=== PATIENT | male | born 1955 | race Caucasian/White ===

== ENCOUNTER 2025-04-18 06:38 | Day surgery (SDC) | payer OTHER, SELFPAY ==
--- NOTE | 2025-04-18 09:05 | ITS.CL.CARDI ---
Steam And Power Superintendent - Cardioversion
Cardioversion
Procedure Report:
Procedure: NEFTALI-guided electrical cardioversion
Pre-operative diagnosis: Persistent atrial fibrillation
Post-operative diagnosis: Persistent atrial fibrillation status post DC cardioversion to sinus rhythm
Anesthesia: MAC
Attending Physician: Abdoul Gonsalez MD
Procedure Description: The patient was brought to the electrophysiology laboratory in the fasting state. Informed consent was obtained from the patient prior to the start of the procedure. Adherence to anticoagulation was confirmed. Electrodes were
placed on the patient and connected to an external defibrillator. Monitoring of blood pressure, ECG tracings, and pulse oximetry was initiated. The pads were applied to the patient in the anterior and posterior positions. The patient was sedated by
the anesthesiologist. A NEFTALI (reported separately) was performed prior to the cardioversion. No left atrial or left atrial appendage thrombus was seen. After the NEFTALI probe was removed, a 200 joule biphasic synchronized shock was delivered to the
patient under MAC anesthesia. Sinus rhythm was successfully restored. After several minutes atrial fibrillation recurred. Subsequent 200 joule biphasic synchronized shock was delivered to the patient under MAC anesthesia. Sinus rhythm was again
successfully restored. The patient recovered uneventfully from MAC anesthesia. There were no immediate post-procedure complications. The patient left the lab in good condition. The attending physician was present throughout the entire procedure.
Impression: Successful NEFTALI-guided direct current cardioversion with restorationist of sinus rhythm after two 200 joule biphasic synchronized shock.
== END 2025-04-18 09:40 | disposition home or self-care (01) ==
LOC: CATH 06:38
PROVIDERS: ATTENDING PHYSICIAN Internal Medicine Cardiovascular Disease; FAMILY PHYSICIAN Family Medicine; OTHER PHYSICIAN Internal Medicine Cardiovascular Disease
DX: I48.19 Other persistent atrial fibrillation (principal); I08.1 Rheumatic disorders of both mitral and tricuspid valves; I48.92 Unspecified atrial flutter; Z79.01 Long term (current) use of anticoagulants
CPT/HCPCS: 93312; 93320; 93325; 92960; 93005

== ENCOUNTER 2025-07-04 06:03 | Day surgery (SDC) | payer OTHER, SELFPAY ==
[2025-06-07 08:11] VITALS: BMI 31.3
[2025-06-07 08:40] LABS: Hematocrit 45.0 % (39.0-52.0); Hemoglobin 15.5 g/dL (13.0-18.0); Mean Corp Hgb Conc. 34.4 g/dL (33.0-37.0); Mean Corpuscular Volume 94.1 fL (80.0-94.0); Nucleated Red Blood Cells % 0 % (-); Platelet Count 190 10^3/uL (130-400); Red Cell Dist. Width 13.2 % (11.5-14.5)
[2025-06-07 08:51] LABS: INR 1.19; PT 15.4 Sec (11.4-14.6)
[2025-06-07 08:59] LABS: ALT (SGPT) 34 U/L (0-50); AST (SGOT) 33 U/L (17-59); Albumin 4.4 g/dl (3.5-5.0); Alkaline Phosphatase 73 U/L (38-126); Blood Urea Nitrogen 27 mg/dl (9-20); Calcium 9.2 mg/dl (8.4-10.2); Carbon Dioxide 20 mmol/L (22-30); Estimated Creatinine Clearance 98 ml/min; Glucose 94 mg/dl (70-99); Magnesium 1.9 mg/dl (1.6-2.3); Potassium 4.8 mmol/L (3.5-5.1); Sodium 141 mmol/L (135-145); Total Protein 7.1 g/dl (6.3-8.2); eGFR > 60.00
[2025-06-07 09:06] LABS: Chloride 107 mmol/L (98-107)
[2025-07-04] VITALS (10 sets, daily range): BP systolic 85–125; BP diastolic 68–88; BMI 31.3
[2025-07-04 08:55] LABS: ACT-LR - POC 318 Seconds (116-155)
[2025-07-04 09:26] LABS: ACT-LR - POC 353 Seconds (116-155)
--- NOTE | 2025-07-04 10:03 | ITS.CL.ABL ---
Content Editor - Ablation
Ablation
Procedure Report:
ELECTROPHYSIOLOGY ABLATION STUDY
DATE:: 07/04/2025�����������������������������REFERRING: Dr. Toby Timmons
INDICATION: Persistent supraventricular tachycardia in the form of atrial fibrillation.��Prior history of pulmonary vein isolation x 2
HISTORY: See H and P.��As above
ANTIARRHYTHMIC DRUG: Dofetilide
PRE-PROCEDURE NEFTALI: No intracardiac thrombus on left atrial appendage
PRESENTING RHYTHM: A-fib
'TIME-OUT':��called and confirmed.
SEDATION/ANESTHESIA:��provided via the anesthesia department using general anesthesia (LMA).
INTRAVENOUS/ARTERIAL ACCESS:
Right femoral venous - 8Fr
Left femoral venous - 8 Fr, 6 Fr
Ultrasound guidance for bilateral femoral vein access was utilized by me to obtain access with demonstration of normal anatomy
CHADS-VASC Score:
HAS-Bled Score
PROCEDURE:
1.��A decapolar CS catheter was placed within the CS for mapping and pacing.��This was also used as the reference catheter for the 3-D map.
2. The intracardiac ultrasound catheter was positioned in the RA to identify the FO for targeting of transseptal puncture, assist��in identification of the pulmonary vein ostia, monitoring pre and post ablation pulmonary vein flow velocities,
monitoring for 'bubble' formation during RF application as a sign of thermal injury,��and to monitor for pericardial effusion during mapping and ablation procedure.���Left atrial size, LV ejection fraction, and pulmonary vein flows were monitored
pre and post ablation procedure. The other valves were inspected and found to be free of significant regurgitation or stenosis.
3.��Half of the calculated heparin bolus was administered prior to the first transeptal puncture.��Transseptal puncture was performed to diagnose RA and LA pressure so that safety of LA mapping and ablation could be further assessed, and to access
the left atrium and pulmonary veins for mapping and ablation.��This entailed advancing an 10 Hungarian steerable sheath with dilator into the superior vena cava and withdrawing both (monitoring intracardiac ultrasound, fluoroscopy and tip pressure)
with the tip oriented toward the atrial septum.��The fossa ovalis was engaged (indicated by sudden displacement of the sheath tip as well as tenting of the fossa seen on intracardiac ultrasound).��Left atrial access required a pass with the
Brockenbrough needle extended.��Left atrial catheter position was confirmed by pressure monitoring (RA mean pressure 4 mm Hg and LA mean presure 7 mm Hg), LA saturation (99%),��as well as fluoroscopy.��The sheath was advanced over the dilator and
positioned in the left atrium.��This procedure was repeated for the Agilis sheath.��The remainder of the calculated heparin bolus was administered and heparin was
infused to maintain ACT at 300 -350 seconds throughout the case.
4.��RA pacing was performed via the proximal decapolar poles and LA pacing was performed via the distal decapolar poles.
5. A quadrapolar catheter was first positioned at the His position for His Bundle recording which was tagged via the 3-D Navex sytem, and then passed to the RVA for RV pacing and recording.
6. The pulmonary veins were isolated at baseline except for the appendage side of the ligament of Edvin which was addressed with focal PFA. LIPV, LSPV, RSPV and the RIPV.��
7.��Next, a 3-D map was created using Navex.���A 3-D reconstructed CT image was compared to the 3-D Navex map to assist in anatomic interpretation, mapping and ablation.��The CT image and the NavX image were fused.
8. 9 mm lattice catheter utilized focal PFA lesions along the ligament of Edvin from the root to the floor. Posterior box lesion set was given to the posterior wall with the roof and floor lines as well as a posterior box and substrate ablation
the posterior wall. Despite the pulmonary vein lesions on the ligament of Edvin and the posterior box lesion set atrial fibrillation persisted and the patient was cardioverted to sinus rhythm. We then confirmed entrance and exit block in all 4
pulmonary veins as well as entrance and exit block from the posterior wall with electrical silence from the roof to the floor of the LA. Additional substrate at the base of the left atrial appendage and the left atrial floor was performed with PFA.
EPS post cardioversion demonstrated inducibility of a macro gentian rhythm cycle length 310 ms which was entrained and out of the circuit from the left atrium. From that lateral CTI we were able to terminate the arrhythmia with a nonconducted
stimulus suggesting CTI flutter. We then with RA pacing mapped the CTI line from prior ablation and there was some breakthrough at the IVC junction with the RA. We delivered PFA lesions at the IVC RA junction rendering bidirectional block 150 ms
bidirectionally. We then performed additional RA substrate based ablation from the mid to lower sherly terminalis.
9 normal sinus node and AV node function..
TOTAL FLOURO TIME: 12.1 minutes
TOTAL RF DURATION: 0 minutes
REVERSAL OF HEPARIN: 40 mg of protamine, slow IV administration
COMPLICATIONS:
None
Intracardiac US shows no pericardial effusion post ablation.
SUMMARY:��
Complex left atrial mapping and ablation.
Reisolation of left superior pulmonary vein from the leg into Edvin left atrial appendage side. Left atrial posterior wall isolation with a box lesion set. Repeat CTI flutter ablation with focal lesions at the IVC RA junction. Additional
sherly terminalis substrate modification with PFA.
RECOMMENDATIONS:
1. Ambulate in 4 hours
2. Resume anticoagulation
3.� Resume dofetilide
4.��Consider same-day discharge
Copy to: Dr. Bennett Timmons
--- NOTE | 2025-07-04 11:11 | PTCARENOTE ---
2 episodes of tachycardia noted on monitor, self limiting, see strips, ?PAT, asymptomatic for pt, Chandrika HOLLIDAY made aware, no new orders
--- NOTE | 2025-07-04 14:00 | W.PN.UPDATE ---
Update Note
Progress Note Update
69 yo WM s/p PVI (Same day). He denies cp, sob, qi diet, voiding, EKG SR, groin stable. He will resume Eliquis tonight, continue dofetilide and metoprolol. Activity restrictions reviewed. He is for d/c home after 230p
== END 2025-07-04 14:30 | disposition home or self-care (01) ==
LOC: CATH 06:03
PROVIDERS: ATTENDING PHYSICIAN Internal Medicine Cardiovascular Disease; FAMILY PHYSICIAN Family Medicine
DX: I48.0 Paroxysmal atrial fibrillation (principal); I42.8 Other cardiomyopathies; E78.5 Hyperlipidemia, unspecified; I11.0 Hypertensive heart disease with heart failure; I48.92 Unspecified atrial flutter; G47.33 Obstructive sleep apnea (adult) (pediatric); Z87.891 Personal history of nicotine dependence; Z79.899 Other long term (current) drug therapy; Z79.01 Long term (current) use of anticoagulants; I47.10 Supraventricular tachycardia, unspecified; Z96.653 Presence of artificial knee joint, bilateral
CPT/HCPCS: C1733; C1894; C1730; C1892; C1766; C1759; 36415; 80053; 83735; 85025; 85347; 85610; 86850; 86900; 86901; 93005; 93655; 93656; 93657

== ENCOUNTER 2025-07-11 12:02 | Inpatient (IN) | payer OTHER, SELFPAY ==
--- NOTE | 2025-07-11 10:35 | W.PN.CARDCBS ---
Today's Communication / Plan
-
Plan for CV today and will start Tikosyn 250mcg po q12
Lasix 20mg daily and check pro-BNP
Impression / Plan
-
Assessment:
symptomatic paroxysmal Afib
s/p PVI 07/04/25
Hx PVI/CTI 08/03
GENTRY
GERD
BPH
esophageal stricture
HTN
Lipids
NEFTALI 04/18/25: EF 50%, mild-mod MR, mild-mod TR
PLan:
He presents for elective cardioversion after recent PVI 1 week ago. He admits to being noncompliant with his Tikosyn for the past month or so. After cardioversion we will proceed with mini load of Tikosyn with 250 mcg every 12. We will follow his
QT interval. Previous QT intervals have been in the 490 to 500 ms range. Continue Eliquis 5 mg p.o. twice daily. Continue metoprolol.
CHeck Labs/pro-BNP.
Cont Lasix
Progress Note - Sandwich Board Carrier
Subjective
Date of Service: July 11, 2025
presents with palpitations/fatigue and back in afib.
Physical Exam
Physical Exam
97.6 80 125/60 18
GEN: No distress, awake, Ox3
HEENT: supple, anicteric, mmm
LUNGS: CTA, no wheezes/rales
CV: irreg, S1/S2, 1/6 syst LSB, no gallop
ABD: soft, BS+, NT/ND
EXT: No edema
NEURO: Gross non-focal
SKIN: No rash
--- NOTE | 2025-07-11 11:54 | W.CARD.TIKOS ---
Initiate Tikosyn
-
I verify that the patient has not taken any verapamil (Isoptin/Calan), ketoconazole (Nizoral), cimetidine (Tagamet), trimethoprim (Trimpex), trimethoprim/sulfamethoxazole (Bactrim), megesterol (Megace), prochlorperazine (Compazine),
hydrochlorothiazide (HCTZ), dolutegravir (Tivicay) or any Class I or Class III anti-arrhythmic within the last three days
AND
I verify that the patient has not taken amiodarone within the last THREE months, or that the patient's amiodarone plasma concentration is <0.3 mcg/mL.
Does patient have a Ventricular Conduction Abnormality: No
I have assessed the baseline QTc interval (using QT for heart rate less than 60 bpm) and deemed the patient is appropriate for Dofetilide therapy. I understand that Tikosyn is contraindicated if the QTc is >440msec (500msec in patients with
ventricular conduction abnormalities).
Baseline QTc (in msec): 495
QTc interval is greater than 440msec without conduction abnormality OR greater than 500msec with a conduction abnormality, but acceptable to proceed per Cardiology attending.
Ordering Physician: Jose Chicas
--- NOTE | 2025-07-11 12:09 | ITS.CL.CARDI ---
Evening Or Night Nurse Supervisor - Cardioversion
Cardioversion
Procedure Report:
Date of Procedure: 07/11/25
Procedure: Cardioversion
Indication: Symptomatic atrial fibrillation
Performing Physician: Talha Chicas MD
Technique: The patient was brought to the holding area. Signed informed consent was obtained. A time out was called and performed. The patient was anesthetized by the anesthesia service. Anticoagulation status was reviewed and appropriate. R2 pads
were placed anteriorly and posteriorly. A 200 J synchronized biphasic shock restored normal sinus rhythm without significant bradycardia. There were no complications.
Conclusion: Uncomplicated cardioversion from atrial fibrillation to sinus rhythm.
Recommendation: Routine post cardioversion care. Continue purchase order checker anticoagulation. Admit for Tikosyn re-load.
--- NOTE | 2025-07-11 12:12 | W.PN.UPDATE ---
Update Note
Progress Note Update
went back in afib 5 minutes after CV. Will start Tikosyn 250mcg q12 and then reattempt CV in AM.
Follow QTc
--- NOTE | 2025-07-11 13:35 | PTCARENOTE ---
Addendum entered by Madeleine Salinas RN 07/11/25 13:42:
At 1310 hours, rec'd pt report.
Original Note:
rec'd pt report from SHANNAN Villatoro. She advises unable to collect ordered labs. Phlebotomy aware and will come to BS.
[2025-07-11 14:01] VITALS: BP 129/98
[2025-07-11 14:21] LABS: ALT (SGPT) 28 U/L (0-50); AST (SGOT) 24 U/L (17-59); Albumin 4.3 g/dl (3.5-5.0); Alkaline Phosphatase 66 U/L (38-126); Blood Urea Nitrogen 21 mg/dl (9-20); Calcium 9.3 mg/dl (8.4-10.2); Carbon Dioxide 29 mmol/L (22-30); Chloride 108 mmol/L (98-107); Glucose 96 mg/dl (70-99); Magnesium 1.8 mg/dl (1.6-2.3); Potassium 5.4 mmol/L (3.5-5.1); Sodium 140 mmol/L (135-145); Total Protein 6.8 g/dl (6.3-8.2); eGFR > 60.00
[2025-07-11 14:29] VITALS: BMI 31.7
[2025-07-11 14:34] LABS: Hematocrit 45.0 % (39.0-52.0); Hemoglobin 15.6 g/dL (13.0-18.0); Mean Corp Hgb Conc. 34.7 g/dL (33.0-37.0); Mean Corpuscular Volume 94.3 fL (80.0-94.0); Nucleated Red Blood Cells % 0 % (-); Platelet Count 187 10^3/uL (130-400); Red Cell Dist. Width 13.2 % (11.5-14.5)
[2025-07-11] MEDS: TIKOSYN 250 MCG PO (15:11)
[2025-07-11 16:09] VITALS: BP 124/90
--- NOTE | 2025-07-11 16:32 | CM ---
Addendum entered by Jahaira Killian 07/11/25 16:55:
Telephone call to [facility] to check if they have Dofetilide 250 in stock. They only have six pills. They will need a script to order it.
Addendum entered by Jahaira Killian 07/11/25 16:45:
Telephone call to [facility] , ([phone]) to check on coverage for Dofetilide 250 mcg po bid. His co-pay for a 30 day supply is $3.00 and for a 90 day supply is $10.00. His will need a three day script sent to [facility] so a three
supply can go home with him.
Original Note:
Reviewed chart. Met with to review discharge plans. He states prior to admission he resides with his spouse in a two story home with five steps to enter. He states he stay on the first floor. He states prior to admission he was
independent with ambulation and adls. He states he does not have any DME in the home. He states he has a prescription plan and uses [facility]. Medical work up in progress. The discharge plan is to return home with his spouse when
medically stable.
--- NOTE | 2025-07-11 19:00 | PTCARENOTE ---
~1355: Received report from CCL. Patient brought to room via bed. Pt AOx4, Afib 80s-110s on tele, SBP 120s, RA satting 95%. Pt denies pain at this time. Independent in room,. Admission questions completed and patient oriented to room and callbell
system. Patient walking frequently in halls independently. All needs met at this time, call martinez within reach.
~1500: First Tikosyn dose given per order. informed Elma Hidalgo PA-C thst K resulted 5.4, no new orders at this time.
~1640: Patient red alarmed with what could be conversion pauses. The first one was 2 seconds and the second was 3 seconds long. HR on monitor drops to 50s quickly and then back up to 80s-90s and remains in Afib, Elma Hidalgo PA-C made aware.
~2459-1336: EKG obtained per protocol for QTC monitoring.
~[id number]: patient walking halls. VSS at this time. family visiting. All needs met at this time. handoff report given to nightshift RN.
[2025-07-11 20:22] VITALS: BP 109/89
[2025-07-11] MEDS: LOPRESSOR 25 MG PO (20:24)
[2025-07-11] MEDS: ELIQUIS 5 MG PO (20:25)
--- NOTE | 2025-07-11 20:48 | PTCARENOTE ---
Assumed care at 1900. Patient alert and oriented x4. Denies any chest pain or shortness of breath. Patient ambulating independently in halls and room. Patient remains Afib on tele. Heart rates elevated with ambulation. Plan of care reviewed with
patient. Patient aware he is to be NPO at midnight for cardioversion tomorrow. Call martinez within reach.
[2025-07-11 22:19] VITALS: BP 116/91
[2025-07-12 04:02] VITALS: BP 118/84
[2025-07-12] MEDS: TIKOSYN 250 MCG PO ×2 (04:04→16:09)
[2025-07-12 04:52] LABS: Hematocrit 45.7 % (39.0-52.0); Hemoglobin 15.8 g/dL (13.0-18.0); Mean Corp Hgb Conc. 34.6 g/dL (33.0-37.0); Mean Corpuscular Volume 93.3 fL (80.0-94.0); Platelet Count 180 10^3/uL (130-400); Red Cell Dist. Width 13.3 % (11.5-14.5)
[2025-07-12 05:30] LABS: Blood Urea Nitrogen 20 mg/dl (9-20); Calcium 9.4 mg/dl (8.4-10.2); Carbon Dioxide 26 mmol/L (22-30); Chloride 108 mmol/L (98-107); Estimated Creatinine Clearance > 125 ml/min; Glucose 88 mg/dl (70-99); Potassium 4.7 mmol/L (3.5-5.1); Sodium 141 mmol/L (135-145); eGFR > 60.00
[2025-07-12 06:00] VITALS: BMI 30.7
--- NOTE | 2025-07-12 06:40 | PTCARENOTE ---
Patient sleeping between care overnight. Dose 2 of Tikosyn given at 0400. 2 hour post dose QTc = 494. Patient remains in afib on tele. Patient has been NPO since midnight for cardioversion this AM.
[2025-07-12] MEDS: ELIQUIS 5 MG PO (06:41)
[2025-07-12 06:59] VITALS: BP 155/143
[2025-07-12 07:02] VITALS: BP 116/74
--- NOTE | 2025-07-12 07:36 | PTCARENOTE ---
pt off unit for cv.
--- NOTE | 2025-07-12 08:57 | W.PN.CARDCBS ---
Addendum entered and electronically signed by Elma Hidalgo PA-C 07/12/25 15:36:
[id number]
Addendum entered and electronically signed by Jose Chicas MD 07/12/25 09:25:
I saw and examined the patient.
The Clerical Car Checker's note was reviewed and I agree with the note.
Comment:
GEN: No distress, awake, Ox3
HEENT: supple, anicteric, mmm
LUNGS: CTA, no wheezes/rales
CV: Reg, S1/S2, 1/6 syst LSB, no gallop
ABD: soft, BS+, NT/ND
EXT: No edema
NEURO: Gross non-focal
SKIN: No rash
Plan:
Overall doing well and back in sinus rhythm today after cardioversion.
Continue Tikosyn 250 mcg every 12. Follow QT interval.
Continue Eliquis and metoprolol.
Likely for discharge later today after third dose of Tikosyn if QT stable.
Addendum entered and electronically signed by Elma Hidalgo PA-C 07/12/25 09:19:
Prior to ablation he had been on 20 mg of Lasix 3-5 times a week, however it appears this was stopped post ablation. Will have patient follow daily weights as outpatient and could consider resuming low-dose Lasix several times a week as outpatient
if felt to be needed
Original Note:
Today's Communication / Plan
-
Continue Tikosyn 250 mcg every 12 hours
Follow QTc
Continue Eliquis, Lopressor
Plan for discharge later today if remains stable after third dose
Impression / Plan
-
Assessment:
symptomatic paroxysmal Afib
s/p PVI 07/04/25
Hx PVI/CTI 08/03
s/p unsuccessful CV 07/11, s/p successful CV 07/12/25
GENTRY
GERD
BPH
esophageal stricture
HTN
Lipids
NEFTALI 04/18/25: EF 50%, mild-mod MR, mild-mod TR
Plan:
- Patient underwent PVI 07/04/2025
- Discovered he has been noncompliant with his Tikosyn for the last month or so
- Underwent successful elective cardioversion 07/11
- was admitted and undergoing mini load with Tikosyn 250 mcg every 12 hours.
- QTc stable thus far
- Status post repeat cardioversion 07/12, which was successful
- Continue Eliquis 5 mg twice daily
- Continue Lopressor
- will plan for DC to home later today after 3rd dose of tikosyn if QTc remains stable
- will arrange OP follow up
- d/w nursing
Progress Note - Crop Puller
Subjective
Date of Service: July 12, 2025
No complaints. Back in sinus post cardioversion this morning
Objective
Labs:
07/12/25 04:13
07/12/25 04:13
Labs
Hgb 15.8 g/dL (13.0-18.0) 07/12/25 04:13
Hct 45.7 % (39.0-52.0) 07/12/25 04:13
Plt Count 180 10^3/uL (130-400) 07/12/25 04:13
Sodium 141 mmol/L (135-145) 07/12/25 04:13
Potassium 4.7 mmol/L (3.5-5.1) 07/12/25 04:13
BUN 20 mg/dl (9-20) 07/12/25 04:13
Creatinine 0.7 mg/dL (0.7-1.3) 07/12/25 04:13
Glucose 88 mg/dl (70-99) 07/12/25 04:13
Vital Signs and I&O:
Vital Signs
Temp Pulse Resp BP Pulse Ox
97.9 F 112 20 116/74 98
07/12/25 07:01 07/12/25 07:30 07/12/25 07:01 07/12/25 07:02 07/12/25 07:01
Vital Signs
Temp Pulse Resp BP Pulse Ox
97.9 F 112 20 116/74 98
07/12/25 07:01 07/12/25 07:30 07/12/25 07:01 07/12/25 07:02 07/12/25 07:01
Intake & Output
07/10/25 07/11/25 07/12/25 07/13/25
07:59 07:59 07:59 07:59
Intake Total 240 / 240
Balance 240 / 240
Physical Exam
Physical Exam
GEN: No distress, awake, alert, oriented x3
HEENT: supple, anicteric, mmm, EOMI
LUNGS: CTA bilaterally, no wheezes/rales
CV: Reg, S1/S2, no murmur
ABD: soft, BS+, NT/ND
EXT: No cyanosis, clubbing. trace edema
NEURO: Gross non-focal
SKIN: Warm, pink, dry. No rash
[2025-07-12 09:00] VITALS: BP 109/74
--- NOTE | 2025-07-12 09:40 | CM ---
Reviewed chart. Met with Mr. Kiran to review discharge plans. He states he maybe able to go home soon. Reviewed co-pay for Dofetilide as $2.95 for a 30 day supply and $10.44 for a 90 day supply. Telephone call to [facility] who
states they will not get the Dofetilide in until Tuesday. Will send him home with eight pills to get him thru the holiday weekend. Prior to admission he resides with his spouse in a two story home with five steps to enter. He stays on the first
floor. Prior to admission he was independent with ambulation and adls. He does not have any DME in the home. He states he has a prescription plan and uses [facility]. Medical work up in progress. The discharge plan is to return home with
his spouse when medically stable.
[2025-07-12 11:03] VITALS: BP 114/68
[2025-07-12] MEDS: LOPRESSOR 25 MG PO (11:46)
--- NOTE | 2025-07-12 11:47 | W.DS.TRANS ---
DC Summary - Form Setter [employer] Forms
-
Discharge Instructions:
Discharge Diagnosis/Procedures cardioversion, tikosyn load
Diet Low Sodium
Activity As tolerated
Driving Restrictions No driving for 24 hours
Specialty Instructions Weigh Daily
Instructions:
Stand-Alone Forms:
Changes to Home Medications: Yes
Discharge Medications:
DC Medications w/original date entered in [employer]
multivitamin 1 tab PO DAILY 06/05/25
apixaban 5 mg tablet (Eliquis) 5 mg PO BID Blood clot prevention/tx #60 tabs 07/12/25
dofetilide 250 mcg capsule 250 mcg PO Q12H #60 caps 07/12/25
metoprolol tartrate 25 mg tablet 25 mg PO BID #60 tabs 07/12/25
Home Medication Changes
tikosyn and lopressor restarted this admission
Pending Results: No
--- NOTE | 2025-07-12 12:30 | PTCARENOTE ---
pt afib this am on the monitor, went for cv, sr since. Pt hr in the 80s, vss. pt offers no complaints at this time. pt ambulating through the halls and tolerating well. pt offers no complaints at this time. pt educated on plan of care and pt
verbalized understanding. call martinez within reach.
[2025-07-12 14:58] VITALS: BP 108/79
--- NOTE | 2025-07-12 18:24 | PTCARENOTE ---
d/c instructions read to pt and pt verbalized understanding. iv and tele removed. pt left with belongings from room and home Tikosyn dosages. pt left via wheelchair with staff member.
== END 2025-07-12 18:27 | disposition home or self-care (01) | DRG 310 ==
LOC: IVU 12:02
PROVIDERS: Internal Medicine; Physician Assistant; ADMITTING PHYSICIAN Internal Medicine Cardiovascular Disease; ATTENDING PHYSICIAN Internal Medicine Cardiovascular Disease; FAMILY PHYSICIAN Family Medicine
PROC: 5A2204Z Restoration of Cardiac Rhythm, Single (ICD-10-PCS; 2025-07-11)
DX: I48.0 Paroxysmal atrial fibrillation (principal); I10 Essential (primary) hypertension; G47.33 Obstructive sleep apnea (adult) (pediatric); E78.5 Hyperlipidemia, unspecified; K21.9 Gastro-esophageal reflux disease without esophagitis; K22.2 Esophageal obstruction; N40.0 Benign prostatic hyperplasia without lower urinary tract symptoms; T46.2X6A Underdosing of other antidysrhythmic drugs, initial encounter; Z91.138 Patient's unintentional underdosing of medication regimen for other reason
CPT/HCPCS: 80048; 80053; 83735; 83880; 85025; 85027; 92960; 93005